=== PATIENT | male | born 1995 | race Two or more races ===

== ENCOUNTER 2020-02-29 17:13 | Outpatient (REF) | payer OTHER, SELFPAY ==
[2020-02-29 17:54] LABS: COVID-19 Test Negative (Negative)
== END 2020-02-29 17:14 | disposition home or self-care (01) ==
LOC: HO.LAB 17:13
PROVIDERS: Visit Provider Internal Medicine
DX: Z20.828 Contact with and (suspected) exposure to other viral communicable diseases (principal)
CPT/HCPCS: 87635

== ENCOUNTER 2020-05-19 15:59 | Emergency (ER) | payer OTHER, SELFPAY ==
--- NOTE | 2020-05-19 | XR_ITS ---
EXAMINATION: XR FOOT, RIGHT CLINICAL INFORMATION: Crush injury COMPARISON: None TECHNIQUE: AP, lateral, and oblique views of the right foot. FINDINGS: There is no acute visible fracture or dislocation. Joint spaces and alignment are maintained. Soft tissues are unremarkable. XR/XR foot RT min 3V IMPRESSION: No acute visible fracture or dislocation.
[2020-05-19 16:03] VITALS: BP 144/91; PULSE 114; RESP 18; TEMP 36.7; O2SAT 98; BMI 25.7
--- NOTE | 2020-05-19 16:38 | ED_ITS ---
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 This accident happened during work. Patient stated that he is up-to-date on his vaccination. Related Data Previous Rx's Medication Instructions Recorded ibuprofen 800 mg PO Q8H PRN #30 tab 05/19/20 Allergies Allergy/AdvReac Type Severity Reaction Status Date / Time No Known Allergies Allergy Unverified 01/25/20 19:31 [No Known Allergies*] Review of Systems Review of Systems: All other systems are reviewed and are negative Constitutional: Reports as per HPI and Reports no additional constitutional complaints Eyes: Reports as per HPI and Reports no additional eye complaints Reports system reviewed and no additional complaints, except as documented Cardiovascular: Reports as per HPI and Reports no additional cardiovascular complaints Respiratory: Reports as per HPI and Reports no additional respiratory complaints Gastrointestinal: Reports as per HPI and Reports no additional gastrointestinal complaints Genitourinary: Reports no additional female genitourinary complaints Musculoskeletal: Reports no additional musculoskeletal complaints Skin/Breast: Reports system reviewed and no additional complaints, except as docu Psychiatric: Reports no additional psychiatric complaints Endocrine: Reports no additional endocrine complaints Hematologic/Lymphatic: Reports no additional hematologic/lymphatic complaints Allergic/Immunologic: Reports no additional allergic/immunologic complaints Reports system reviewed and no additional complaints, except as documented and Reports Abnormal speech present [facility] Social History Social History Advance Directives: No Advance Directives Information Provided: No Physical Exam Vital Signs: Vital Signs: Last Vital Signs Temp 98.0 F 05/19/20 16:03 Pulse 114 H 05/19/20 16:03 Resp 18 05/19/20 16:03 BP 144/91 H 05/19/20 16:03 Pulse Ox 98 05/19/20 16:03 Body Mass Index 25.7 Vital signs have been reviewed as normal and appeared to be correct. Blood pressure in the high range. Heart rate tachycardic. Respiration rate normal. Temperature normal. Oxygen saturation normal. Appearance: Alert. Oriented X3. No acute distress. Head: Normal external exam. Normocephalic. Atraumatic. No Ortiz signs noted. No raccoon eyes noted Eyes: PERRLA. EOMI. Conjunctiva and sclera normal. Eyelids normal. ENT: EAC normal. TM's Normal. Pharynx normal. Uvula midline. Moist mucous membranes. No trismus noted. No drooling noted. No muffled voice noted. Neck: Normal inspection. Neck supple. FROM. No adenopathy. Thyroid Normal. No meningeal signs. No neck mass noted. CVS: Normal heart rate and rhythm. Heart sound normal. No murmurs noted. Pulses normal throughout. Respiratory: No respiratory distress. Painless inspiration. Breath sounds normal. No wheezes/rales/rhonchi noted. Chest nontender. No accessory muscle usage noted or decreased air movement noted. Abdomen: Soft and nontender. Bowel sounds normal in all 4 quadrants. No distention noted. No organomegaly noted. No visible injury noted. Back: No CVA tenderness. Full range of motion noted. Skin: Skin warm and dry. Normal skin color. Normal skin turgor. No rashes/lesions/lacerations noted. Extremities: Right foot exam: Right great toe slightly swollen, with mild ecchymosis, small subungual hematoma, dry blood, not from lateral side of nail bed of the toe. Otherwise no open fracture Neuro: Oriented X 3. No motor deficit. No sensory deficit. Reflexes normal. Course Course Course Narrative: 24-year-old male otherwise healthy during work he dropped a heavy newspaper stand on his right foot causing fracture of the right big toe. Stevenson tape the toes, postop shoe, analgesia, follow-up with ortho. Discharge Plan Discharge Clinical Impression: Fracture of toe Qualifiers: Encounter type: initial encounter Toe: great toe Fracture type: closed Phalanx: distal Fracture alignment: displaced Patient Disposition: Home, Self-Care Instructions: Toe Fracture (ED) Prescriptions: New ibuprofen 800 mg tablet 800 mg PO Q8H PRN (Reason: pain) Qty: 30 RF: 0 Referrals: Zeke Lynch MD [Physician] - 2 days Stand Alone Forms: Work/School Release
[2020-05-19] MEDS: oxyCODONE HCl Immed Release 5 MG TABLET PO (17:15)
== END 2020-05-19 18:30 | disposition home or self-care (01) ==
PROVIDERS: Emergency Provider Emergency Medicine
DX: S92.401A Displaced unspecified fracture of right great toe, initial encounter for closed fracture (principal); M79.671 Pain in right foot; Y29.XXXA Contact with blunt object, undetermined intent, initial encounter; Y93.9 Activity, unspecified; Y92.239 Unspecified place in hospital as the place of occurrence of the external cause; Y99.0 Civilian activity done for income or pay
CPT/HCPCS: 73630; 99283

== ENCOUNTER → 2020-05-21 13:26 | Outpatient (BNVA) | payer OTHER, SELFPAY | PROVIDERS: Visit Provider Physician Assistant | DX: S92.911A Unspecified fracture of right toe(s), initial encounter for closed fracture (principal) | CPT/HCPCS: 99202 ==

== ENCOUNTER 2020-06-19 08:52 | Outpatient (REF) | payer OTHER, SELFPAY ==
--- NOTE | ~2020-06-19 | XR_ITS ---
EXAMINATION: XR FOOT, RIGHT CLINICAL INFORMATION: S92.911A - Unspecified fracture of right toe(s), initial encounter for closed fracture COMPARISON: Radiographs right foot 05/19/2020. TECHNIQUE: The right foot is imaged in 3 views. FINDINGS: There is a comminuted fracture involving the distal phalangeal tuft great toe with some comminuted fracture lines extending into the distal shaft of the distal phalanx. There is no significant angulation, displacement or distraction. Fracture lines are still visible. The remainder of the bony structures are unremarkable. XR/XR foot RT 2V IMPRESSION: Comminuted fracture 1st distal phalanx, distal shaft and tuft.
== END 2020-06-19 08:53 | disposition home or self-care (01) ==
LOC: HO.HOSX 08:52
PROVIDERS: Visit Provider Physician Assistant
DX: S92.911A Unspecified fracture of right toe(s), initial encounter for closed fracture (principal)
CPT/HCPCS: 73620; 99212

== ENCOUNTER → 2020-06-19 15:31 | Outpatient (BNVA) | payer OTHER, SELFPAY | DX: S92.911A Unspecified fracture of right toe(s), initial encounter for closed fracture (principal); X58.XXXA Exposure to other specified factors, initial encounter | CPT/HCPCS: 99202 ==

== ENCOUNTER 2020-07-25 15:00 | Outpatient (REF) | payer OTHER, SELFPAY ==
[2020-07-25 15:26] LABS: COVID-19 Test Negative (Negative)
== END 2020-07-25 15:01 | disposition home or self-care (01) ==
LOC: HO.LAB 15:00
PROVIDERS: Visit Provider Internal Medicine
DX: Z20.822 Contact with and (suspected) exposure to COVID-19 (principal)
CPT/HCPCS: 36415; 87635; C9803

== ENCOUNTER 2021-09-22 19:40 | Outpatient (REF) | payer OTHER, SELFPAY ==
[2021-09-22 20:18] LABS: COVID-19 Test Negative (Negative); IDNOW Serial# 55D5AD1C
== END 2021-09-22 19:41 | disposition home or self-care (01) ==
LOC: HO.LAB 19:40
PROVIDERS: Visit Provider Internal Medicine
DX: Z20.822 Contact with and (suspected) exposure to COVID-19 (principal)
CPT/HCPCS: 87635

== ENCOUNTER → 2021-09-25 14:46 | Outpatient (BNVA) | payer SELFPAY | PROVIDERS: Visit Provider Internal Medicine | DX: Z02.79 Encounter for issue of other medical certificate (principal) ==

== ENCOUNTER → 2022-02-26 12:09 | Outpatient (RCR) | payer OTHER, SELFPAY ==
[2020-03-22 14:48] LABS: COVID-19 Test Negative (Negative); IDNOW Serial# 55D5AD1C
[2020-04-11 08:41] LABS: COVID-19 Test Negative (Negative)
[2020-04-22 17:42] LABS: COVID-19 Test Negative (Negative); IDNOW Serial# 55D5AD1C
[2020-05-01 09:05] LABS: SARS-COV-2 PCR UMBRL Not Detected
[2020-05-01 17:08] LABS: COVID-19 Test Negative (Negative); IDNOW Serial# 55D5AD1C
[2020-05-06 14:22] LABS: COVID-19 Test Negative (Negative)
[2020-05-22 09:52] LABS: SARS-COV-2 PCR UMBRL NOT DETECTED
== END | disposition home or self-care (01) ==
LOC: HO.EMPCOV 03-22 14:23
PROVIDERS: Visit Provider Internal Medicine
DX: Z20.828 Contact with and (suspected) exposure to other viral communicable diseases (principal)
CPT/HCPCS: 36415; 87635; C9803; U0003

== ENCOUNTER 2022-03-01 19:38 | Emergency (ER) | payer OTHER, SELFPAY ==
--- NOTE | ~2022-03-01 | XR_ITS ---
EXAMINATION: XR RIBS, RIGHT CLINICAL INFORMATION: Rib pain status post fall COMPARISON: None TECHNIQUE: 3 views of the right ribs were obtained. FINDINGS: Lungs are clear. No consolidation, pneumothorax, or pleural effusion. The cardiomediastinal silhouette and pulmonary vasculature are normal. No acute displaced rib identified. XR/XR ribs RT min 3V w CXR1V IMPRESSION: 1. No acute pulmonary process. 2. No acute displaced rib fracture identified.
--- NOTE | ~2022-03-01 | CT_ITS ---
EXAMINATION: CT CHEST WITHOUT CONTRAST CLINICAL INFORMATION: Right lower rib pain after fall COMPARISON: None TECHNIQUE: Multidetector volumetric CT imaging of the chest was done. Axial MIP volume rendering provided. Sagittal and coronal reformatted images were obtained. This CT examination was performed using dose optimization techniques as appropriate, variously including the following: *Automated exposure control *Adjustment of mA and/or kV according to patient size (this includes techniques or standardized protocols for targeted exams where dose is matched to indication/reason for exam; i.e. extremities or head) *Use of iterative reconstruction technique DLP: 519 mGy-cm FINDINGS: LUNGS: The lungs are clear with no evidence of inflammation or nodules. MEDIASTINUM: The mediastinum is normal. CORONARY ARTERY CALCIFICATION: None visualized on this study. PLEURA: There is no pleural effusion. No pleural mass or thickening. AXILLA: No lymphadenopathy. UPPER ABDOMEN: Hepatic steatosis. OSSEOUS STRUCTURES: No fractures. CT/CT chest wo IV con IMPRESSION: No rib fractures. No acute findings within the chest. Hepatic steatosis.
[2022-03-01 20:35] VITALS: BP 111/73; PULSE 76; RESP 18; TEMP 36.2; O2SAT 96; BMI 40.5
[2022-03-01] MEDS: Acetaminophen 325 MG TABLET 650 MG PO (20:45)
[2022-03-02 00:38] VITALS: BP 114/71; PULSE 73; RESP 18; TEMP 36.3; O2SAT 97
--- NOTE | 2022-03-02 04:46 | ED.FALL ---
HPI - Fall General Chief Complaint: Fall Stated Complaint: Fall/Work injury Time Seen by Provider: 03/02/22 04:39 Source: patient Mode of arrival: ambulatory History of Present Illness HPI Narrative: 26-year-old male who presents after having fallen of the back of his flat bed truck which caused him to strike his right chest wall against the edge. Patient states that he felt short of breath shortly thereafter but has somewhat improved and now he is his having ?a lot of pain at the right chest. Related Data Previous Rx's Medication Instructions Recorded ibuprofen 800 mg tablet 800 mg PO Q8H PRN pain #30 tabs 05/19/20 Allergies Allergy/AdvReac Type Severity Reaction Status Date / Time No Known Allergies Allergy Verified 03/01/22 20:34 [No Known Allergies*] Review of Systems Review of Systems: Pertinent positives and negatives as stated in HPI 10 point review of systems is otherwise negative. PMFSH Past Medical History Source: nursing notes reviewed Social History Social History Patient Tobacco Use Status: Never used Tobacco Use of substances other than those prescribed or required for medical reasons: No Advance Directives: No Advance Directives Information Provided: No Current occupational status: employed Current occupation: left handed Physical Exam Vital Signs: Vital Signs: Last Vital Signs Temp 97.5 F 03/02/22 04:50 Pulse 63 03/02/22 04:50 Resp 18 03/02/22 04:50 BP 142/79 H 03/02/22 04:50 Pulse Ox 99 03/02/22 04:50 O2 Del Method 03/02/22 04:50 BMI result Body Mass Index 40.5 VITAL SIGNS: Reviewed. GENERAL: Well developed, well nourished, in no acute distress. HEAD: Normocephalic/atraumatic EYES: PERRLA, EOMI EARS: Ext canals without abnormality OROPHARYNX: no oral lesions noted, posterior pharynx clear LUNGS: Normal breath sounds. No adventitious sounds or accessory muscle use. SpO2<97>; CHEST WALL: Patient is expressing significant pain on mild palpation along the right anterolateral ribs but there is no noted deformity or crepitus. CARDIOVASCULAR: Regular rate and rhythm without noted murmurs ABDOMEN: Soft, non-tender, non-distended with bowel sounds. NEUROLOGIC: Alert and oriented x 4. Strength and sensation to light touch were grossly intact x 4. Course Course Course Narrative: 26-year-old male with history and clinical presentation consistent with possible rib fracture, patient provided with combination analgesics as well as lidocaine patch and awaiting CT of the chest. Review of CT scan negative for acute rib fractures. Patient informed and discharged home Discharge Plan Discharge Clinical Impression: Contusion of rib Patient Disposition: Home, Self-Care Instructions: Rib Contusion (ED) Additional Instructions: 1. [id number] Tylenol/ibuprofen as needed for pain control. 2. Follow-up with your primary care provider. Return to the ER for worsening symptoms. Prescriptions: No Action ibuprofen 800 mg tablet 800 mg PO Q8H PRN (Reason: pain) Qty: 30 0RF
[2022-03-02 04:50] VITALS: BP 142/79; PULSE 63; RESP 18; TEMP 36.4; O2SAT 99
--- NOTE | 2022-03-02 04:54 | PC.NURSE ---
pt taken to CT Scan
--- OUTSIDE RECORDS SUMMARY | 2022-03-02 05:23 | XMS_ITS | Continuity of Care Document ---
:1995 Author Organization [facility] Address [address] [place] [address]- Care Team Providers Name Role Phone Not on Staff, PCP Primary Care Physician Unavailable Encounter [facility] Date(s): 07/03/19 - 07/10/19 [facility] [address] [place] [address]- [facility] Encounter Diagnosis Acute bacterial sinusitis (Discharge Diagnosis) - 07/03/19 Attending Physician: [place] CAIN, Christopher Rayo Allergies, Adverse Reactions, Alerts Substance Reaction Severity Status NKA Active Medications amoxicillin 250 mg/5 ml oral powder for reconstitution 5 mL = 250 mg, By Mouth, 3 times a day, # 105 mL, 0 Refills, REC Powder Start Date: 08/12/11 Stop Date: 08/19/11 Status: OrderedConcerta 54 mg oral tablet, extended release 1 tablet = 54 mg, By Mouth, Daily in AM, 0 Refills, Maintenance, ER Tablet Start Date: 08/10/11 Status: Orderedibuprofen 800 mg oral tablet 800 mg, 1, tablet, By Mouth, 3 times a day, PRN, with food or milk, # 30 tablet, Refills 0, Tot. Refills 0, Acute 07/15/19 17:48:00 EST, for pain, 07/03/19 17:48:00 EST, Route to Pharmacy Electronically, [email or web address] #[id number], 188, cm, 07/03/19... Start Date: 07/03/19 Stop Date: 07/15/19 Status: OrderedOcean 0.65% nasal spray 2 sprays, Nares, Both, 4 times a day, # 1 each, 0 Refills, Maintenance, 07/03/19 17:47:00 EST, [facility] #[id number], 2 sprays Nares, Both 4 times a day, 188, cm, 07/03/19 17:26:00 EST, Height, 114.6, kg, 07/03/19 17:26:00 EST, Dry Weight Start Date: 07/03/19 Status: Ordered Problem List Condition Effective Dates Status Health Status Informant ADHD - Attention deficit disorder with Active hyperactivity(Confirmed) Diagnosis Diagnosis Type Effective Dates Health Status Clinical In [facility] Service Acute bacterial Discharge 07/03/19 sinusitis Diagnosis Vital Signs Most recent to oldest [Reference Range]: 1 Height 188.00 cm (07/03/19 5:26 PM) Weight 114.6 kg (07/03/19 5:26 PM) Oxygen Saturation [94-100 %] 100 % (07/03/19 5:26 PM) Pulse Rate [55-90 bpm] 86 bpm (07/03/19 5:26 PM) Body Mass Index [18.5-24.99] 32.42 *>HHI* (07/03/19 5:26 PM) Blood Pressure [90-138/55-84 mm Hg] 143/80 mm Hg *H* (07/03/19 5:26 PM) Respiratory Rate [16-30 br/min] 17 br/min (07/03/19 5:26 PM) Temperature [96.8-100.4 DegF] 99.1 DegF (07/03/19 5:26 PM) Mode of Delivery (Oxygen) Room air (07/03/19 5:26 PM) Blood pressure sites Arm, right (07/03/19 5:26 PM) Temperature Route Oral (07/03/19 5:26 PM) Dry Weight 114.6 kg (07/03/19 5:26 PM) Weight Obtained Via Standing scale (07/03/19 5:26 PM) Dry Weight Obtained Via Standing scale (07/03/19 5:26 PM)
--- OUTSIDE RECORDS SUMMARY | 2022-03-02 05:23 | XMS_ITS | Continuity of Care Document ---
:1995 Author Organization [facility] Address Unavailable , Care Team Providers Name Role Phone Not on Staff, PCP Primary Care Physician Unavailable Encounter [facility] Date(s): 05/14/21 - 06/13/21 [facility] Allergies, Adverse Reactions, Alerts No Known Allergies Medications amoxicillin 250 mg/5 ml oral powder for reconstitution 5 mL = 250 mg, By Mouth, 3 times a day, # 105 mL, 0 Refills, REC Powder Start Date: 08/12/11 Stop Date: 08/19/11 Status: OrderedConcerta 54 mg oral tablet, extended release 1 tablet = 54 mg, By Mouth, Daily in AM, 0 Refills, Maintenance, ER Tablet Start Date: 08/10/11 Status: OrderedOcean 0.65% nasal spray 2 sprays, Nares, Both, 4 times a day, # 1 each, 0 Refills, Maintenance, 07/03/19 17:47:00 EST, [facility] #[id number], 2 sprays Nares, Both 4 times a day, 188, cm, 07/03/19 17:26:00 EST, Height, 114.6, kg, 07/03/19 17:26:00 EST, Dry Weight Start Date: 07/03/19 Status: Ordered Problem List Condition Effective Dates Status Health Status Informant ADHD - Attention deficit disorder with Active hyperactivity(Confirmed)
--- OUTSIDE RECORDS SUMMARY | 2022-03-02 05:23 | XMS_ITS | Continuity of Care Document ---
:1995 Author Organization [facility] Address Unavailable , Care Team Providers Name Role Phone Not on Staff, PCP Primary Care Physician Unavailable Encounter [facility] Date(s): 09/26/21 - 10/26/21 [facility] Attending Physician: Eduarda Lara Admitting Physician: Eduarda Lara Referring Physician: Eduarda Lara Allergies, Adverse Reactions, Alerts No Known Allergies [...] each, 0 Refills, Maintenance, 07/03/19 17:47:00 EST, [facility] #[id number], 2 sprays Nares, Both 4 times a day, 188, cm, 07/03/19 17:26:00 EST, Height, 114.6, kg, 07/03/19 17:26:00 EST, Dry Weight Start Date: 07/03/19 Status: Ordered Problem List Condition Effective Dates Status Health Status Informant ADHD - Attention deficit disorder with Active hyperactivity(Confirmed)
--- OUTSIDE RECORDS SUMMARY | 2022-03-02 05:23 | XMS_ITS | Continuity of Care Document ---
:1995 Author Organization [facility] Address [address] [place] [address]- Care Team Providers Name Role Phone Not on Staff, PCP Primary Care Physician Unavailable Encounter [facility] [place] Date(s): 07/03/19 - 07/13/19 [facility] [address] [place] [address]- [facility] Attending Physician: Eduarda Lara Admitting Physician: AdmtrEduarda Referring Physician: Admtr, Ar8 Allergies, Adverse Reactions, Alerts Substance Reaction Severity [...] 07/03/19 17:48:00 EST, Route to Pharmacy Electronically, [facility] #[id number], 188, cm, 07/03/19... Start Date: 07/03/19 Stop Date: 07/15/19 Status: OrderedOcean 0.65% nasal spray 2 sprays, Nares, Both, 4 times a day, # 1 each, 0 Refills, Maintenance, 07/03/19 17:47:00 EST, [facility] #[id number], 2 sprays Nares, Both 4 times a day, 188, cm, 07/03/19 17:26:00 EST, Height, 114.6, kg, 07/03/19 17:26:00 EST, Dry Weight Start Date: 07/03/19 Status: Ordered Problem List Condition Effective Dates Status Health Status Informant ADHD - Attention deficit disorder with Active hyperactivity(Confirmed)
--- OUTSIDE RECORDS SUMMARY | 2022-03-02 05:23 | XMS_ITS | Continuity of Care Document ---
:1995 Author Organization [facility] Address [address] [place] [id number]- Care Team Providers Name Role Phone Not on Staff, PCP Primary Care Physician Unavailable Encounter [facility] Date(s): 05/15/21 - 07/11/[address] [id number] Attending Physician: Lillian Brewer MD Allergies, Adverse Reactions, Alerts No Known Allergies [...] each, 0 Refills, Maintenance, 07/03/19 17:47:00 EST, [facility] #[id number], 2 sprays Nares, Both 4 times a day, 188, cm, 07/03/19 17:26:00 EST, Height, 114.6, kg, 07/03/19 17:26:00 EST, Dry Weight Start Date: 07/03/19 Status: Ordered Problem List Condition Effective Dates Status Health Status Informant ADHD - Attention deficit disorder with Active hyperactivity(Confirmed)
[2022-03-02] MEDS: Acetaminophen 325 MG TABLET 975 MG PO (05:47)
[2022-03-02] MEDS: Lidocaine 4 % Patch ADH..PATCH 1 PATCH TRANSDERMA (05:48)
[2022-03-02] MEDS: Ketorolac Tromethamine 15 MG/ML VIAL IM (05:48)
--- NOTE | 2022-03-02 06:04 | PC.NURSE ---
pt medicate per Jul. Reviewed discharge instructions with pt. pt verbalized understanding.
== END 2022-03-02 06:05 | disposition home or self-care (01) ==
PROVIDERS: Emergency Provider Student in an Organized Health Care Education/Training Program
DX: S20.211A Contusion of right front wall of thorax, initial encounter (principal); W17.89XA Other fall from one level to another, initial encounter; Y93.89 Activity, other specified; Y92.410 Unspecified street and highway as the place of occurrence of the external cause; Y99.0 Civilian activity done for income or pay
CPT/HCPCS: 71101; 71250; 96372; 99284; J1885

== ENCOUNTER 2023-05-19 15:44 | Emergency (ER) | payer OTHER, SELFPAY ==
--- NOTE | 2023-05-19 16:01 | ED.LOWEXIN ---
HPI - Extremity Injury (Lower) General Chief Complaint: Extremity Injury, Lower Stated Complaint: Stepped on a samantha nail Time Seen by Provider: 05/19/23 16:04 Source: patient, RN notes reviewed and old records reviewed Mode of arrival: ambulatory History of Present Illness HPI Narrative: 27-year-old male with no significant past medical history presenting to the ED complaining of puncture wound to left foot, plantar aspect s/p accidentally stepping on a samantha nail 1 hour [employer]. Reports stepped on nail while walking in street of [place] while wearing Crocs. + bhanu blood. Wash initially. Denies injury to the area, fever/chills. Tetanus unknown Related Data Previous Rx's Medication Instructions Recorded ibuprofen 800 mg tablet 800 mg PO Q8H PRN pain #30 tabs 05/19/20 cephalexin 500 mg capsule 500 mg PO QID 7 days #28 caps 05/19/23 ciprofloxacin HCl 500 mg tablet 500 mg PO BID 7 days #14 tabs 05/19/23 Allergies Allergy/AdvReac Type Severity Reaction Status Date / Time No Known Allergies Allergy Verified 03/01/22 20:34 [No Known Allergies*] Review of Systems Review of Systems: Constitutional: No Fever, No Chills Cardiovascular: No Chest Pain, No SOB Respiratory: No Cough, No Sputum Gastrointestinal: No Nausea, No Abdominal pain Musculoskeletal: No joint pain, No Myalgias, No Joint Swelling Skin: +Skin Lesions, No rash Neuro: No Weakness, No Numbness, No Paresthesias Yes all other systems are reviewed and are negative Constitutional: Constitutional: Reports as per [facility] Past Medical History Attestation statement: The following information was validated with the patient. Source: old records reviewed Onset Date is defined in the Problem List Problems that require an onset date and time if occurred within 24 hrs of arrival to the ED Aortic Dissection and Rupture; Neurologic impairment; Cardiopulmonary Arrest; Endotracheal Intubation; Insertion or Replacement of Mechanical Circulatory Assist Device Social History Social History Patient Tobacco Use Status: Never used Tobacco Current occupational status: employed Current occupation: left handed Physical Exam Vital Signs: Vital Signs: Last Vital Signs Temp 98.0 F 05/19/23 16:02 Pulse 72 05/19/23 16:02 Resp 18 05/19/23 16:02 BP 107/62 05/19/23 16:02 Pulse Ox 95 05/19/23 16:02 O2 Del Method Room Air 05/19/23 16:02 BMI result Body Mass Index 43.0 Const: General: cooperative, healthy appearing and no acute distress Orientation/consciousness: patient oriented x3 Limitations: no limitations HEENT: Head: Yes normal to inspection and Yes atraumatic Ears: hearing grossly normal bilaterally General nose exam: Normal external nose present Face and sinus: Yes normal facial exam Eyes: General: appearance normal, both eyes and all related structures EOM: EOMs intact bilaterally Neck: Neck: Yes normal visual inspection and Yes no meningeal signs Resp: Effort & Inspection: normal respiratory effort and no respiratory distress Cardio: Rate: regular rate Skin: Other: + superficial puncture wound noted to left foot plantar aspect. No appreciable open wounds or active drainage. No surrounding erythema. No fluctuance or induration. Neurovascularly intact. Rashes: no rashes Neuro: General: patient oriented x3, tone normal and no meningeal signs Cranial nerves: Yes CN's II-XII intact bilaterally Gait exam (Neuro): Antalgic gait present Extrem: General: Yes normal to inspection Medical Decision Making Medical Decision Making MDM Narrative: 27-year-old male with no significant past medical history presenting to the ED complaining of puncture wound to left foot, plantar aspect s/p accidentally stepping on a samantha nail 1 hour [employer]. On exam vital signs stable, NAD, nontoxic appearing, physical exam as noted above. Will update tetanus. Discussed risk of infection. Low suspicion for osteomyelitis, abscess formation or retained foreign body Plan: P.o. antibiotics, tetanus, PCP follow-up Please refer to course for remaining clinical decision making, interpretation of labs/imaging results, and discussions with consultants and/or family members. Results discussed with patient including worrisome signs and symptoms and strict return precautions, and when to return to the emergency department. They verbalized understanding and feel safe for discharge at this time. Differential Diagnosis Differential Diagnoses: The differential diagnosis associated with the presentation includes As above External Record Review External record reviewed: Inpatient record, Office record, Outpatient record, Prior outpatient labs, Prior outpatient radiology, Primary care record and Outside ED record Tests considered The following testing was considered but not selected: As above Prescription Management I considered prescription management with: Pain Medication and Antibiotic Discharge Plan Discharge Clinical Impression: Puncture wound of plantar aspect of left foot Patient Disposition: Home, Self-Care Instructions: Puncture Wound in the Foot (ED) Additional Instructions: Keflex and Cipro are antibiotics please take as prescribed Your tetanus was updated If area begins look infected, is red or there is drainage return to the ED Prescriptions: New ciprofloxacin HCl 500 mg tablet 500 mg PO BID 7 Days Qty: 14 0RF cephalexin 500 mg capsule 500 mg PO QID 7 Days Qty: 28 0RF No Action ibuprofen 800 mg tablet 800 mg PO Q8H PRN (Reason: pain) Qty: 30 0RF Referrals: Physician,Unknown J [Primary Care Provider] - 5 days
[2023-05-19 16:02] VITALS: BP 107/62; PULSE 72; RESP 18; TEMP 36.7; O2SAT 95; BMI 43.0
[2023-05-19] MEDS: Diphth,Pertus(ACell),Tet Adult 0.5 ML SYRINGE IM (16:10)
== END 2023-05-19 16:23 | disposition home or self-care (01) ==
PROVIDERS: Emergency Provider Student in an Organized Health Care Education/Training Program
DX: S91.332A Puncture wound without foreign body, left foot, initial encounter (principal); W45.0XXA Nail entering through skin, initial encounter; Y93.01 Activity, walking, marching and hiking; Y92.480 Sidewalk as the place of occurrence of the external cause; Y99.9 Unspecified external cause status; Z23 Encounter for immunization
CPT/HCPCS: 90471; 90715; 99282; 99284

== ENCOUNTER → 2023-09-24 09:36 | Outpatient (BNVA) | payer SELFPAY | PROVIDERS: Visit Provider Physician Assistant | DX: Z02.79 Encounter for issue of other medical certificate (principal) ==

== ENCOUNTER 2024-02-05 21:50 | Emergency (ER) | payer OTHER, SELFPAY ==
[2024-02-05 22:02] VITALS: BP 122/71; PULSE 92; RESP 16; TEMP 36.6; O2SAT 98; BMI 42.4
--- NOTE | 2024-02-06 01:05 | ED_ITS ---
HPI - Dental/Oral General Chief complaint: Dental/Oral Stated complaint: rt side lower tooth pain/hole in it? Time Seen by Provider: 02/06/24 00:48 Source: patient Mode of arrival: ambulatory Limitations: no limitations History of Present Illness ED Provider: janay REED Narrative: Patient is complaining of pain in right lower 2nd molar for last 1 week getting worse increases on drinking cold water with shooting pain does have old cavity filling in place no fever no gum swelling Related Data Previous Rx's ?Medication ?Instructions ?Recorded ibuprofen 800 mg tablet 800 mg PO Q8H PRN pain #30 tabs 05/19/20 acetaminophen 500 mg tablet 500 mg PO Q6H PRN fever or pain 05/19/23 (Tylenol Extra Strength) #14 tabs cephalexin 500 mg capsule 500 mg PO QID 7 days #28 caps 05/19/23 ciprofloxacin HCl 500 mg tablet 500 mg PO BID 7 days #14 tabs 05/19/23 ibuprofen 800 mg tablet 800 mg PO Q8H PRN pain #14 tabs 05/19/23 amoxicillin 875 mg-potassium 1 tab PO BID #20 tabs 02/06/24 clavulanate 125 mg tablet ibuprofen 600 mg tablet 600 mg PO Q6H PRN fever or pain 02/06/24 #30 tabs oxycodone 5 mg tablet 5 mg PO Q6H PRN pain #20 tabs 02/06/24 Allergies Allergy/AdvReac Type Severity Reaction Status Date / Time No Known Allergies Allergy Verified 02/05/24 22:04 [No Known Allergies*] Review of Systems 2 Review of Systems: Yes all other systems are reviewed and are negative PMFSH Social History Social History Patient Tobacco Use Status: Never used Tobacco Advance Directives: No Advance Directives Information Provided: No Current occupational status: employed Current occupation: left handed Physical Exam 2 Vital Signs: Vital Signs: Last Vital Signs Temp 98.3 F 02/06/24 01:08 Pulse 74 02/06/24 01:08 Resp 16 02/06/24 01:08 BP 114/76 02/06/24 01:08 Pulse Ox 98 02/06/24 01:08 O2 Del Method Room Air 02/06/24 01:08 BMI result Body Mass Index 42.4 HEENT: Ears: hearing grossly normal bilaterally, external ears normal and TM's normal bilaterally Teeth image: 1. Old filling in place tenderness to touch no open cavity seen no significant gum swelling no abscess Medical Decision Making Medical Decision Making [facility] Narrative: Patient with dental pulpitis right lower 2nd molar tooth number 31 will prescribe Augmentin and oxycodone for pain Discharge Plan Discharge Clinical Impression: Dental caries Patient Disposition: Home, Self-Care Instructions: Toothache (ED) Additional Instructions: Take antibiotics and pain medication as prescribed Follow up with your dentist Prescriptions: New amoxicillin-pot clavulanate 875-125 mg tablet 1 tab PO BID Qty: 20 0RF oxycodone 5 mg tablet 5 mg PO Q6H PRN (Reason: pain) Qty: 20 0RF Rx Instructions: Partial Fill upon patient request. ibuprofen 600 mg tablet 600 mg PO Q6H PRN (Reason: fever or pain) Qty: 30 0RF No Action ibuprofen 800 mg tablet 800 mg PO Q8H PRN (Reason: pain) Qty: 30 0RF ciprofloxacin HCl 500 mg tablet 500 mg PO BID 7 Days Qty: 14 0RF cephalexin 500 mg capsule 500 mg PO QID 7 Days Qty: 28 0RF ibuprofen 800 mg tablet 800 mg PO Q8H PRN (Reason: pain) Qty: 14 0RF acetaminophen [Tylenol Extra Strength] 500 mg tablet 500 mg PO Q6H PRN (Reason: fever or pain) Qty: 14 0RF Print Language: Mohawk
[2024-02-06 01:08] VITALS: BP 114/76; PULSE 74; RESP 16; TEMP 36.8; O2SAT 98
[2024-02-06] MEDS: Amoxicillin/Potassium Clav 875 MG TABLET PO (01:15)
[2024-02-06] MEDS: oxyCODONE HCl Immed Release 5 MG TABLET 10 MG PO (01:19)
[2024-02-06 01:22] VITALS: BP 114/76; PULSE 74; RESP 16; TEMP 36.8; O2SAT 98
== END 2024-02-06 01:22 | disposition home or self-care (01) ==
PROVIDERS: Emergency Provider Internal Medicine; PCP Internal Medicine
DX: K02.9 Dental caries, unspecified (principal)
CPT/HCPCS: 99283

== ENCOUNTER 2024-09-05 11:22 | Emergency (ER) | payer OTHER, SELFPAY ==
[2024-09-05] VITALS (8 sets, daily range): BP systolic 94–130; BP diastolic 52–79; PULSE 90–116; RESP 14–18; TEMP 36.9–38.8; O2SAT 97–99; BMI 42.6
--- NOTE | ~2024-09-05 | CT_ITS ---
EXAMINATION: CT ABDOMEN AND PELVIS WITH CONTRAST CLINICAL INFORMATION: Abdominal pain, diarrhea. COMPARISON: None available. TECHNIQUE: Multidetector volumetric images were obtained from the superior aspect of the liver through the pubic symphysis following administration 100 mL of Omnipaque 350 intravenous contrast. Sagittal and coronal reformatted images were obtained on the technologist's workstation. Oral contrast: No This CT examination was performed using dose optimization techniques as appropriate, variously including the following: *Automated exposure control *Adjustment of mA and/or kV according to patient size (this includes techniques or standardized protocols for targeted exams where dose is matched to indication/reason for exam; i.e. extremities or head) *Use of iterative reconstruction technique FINDINGS: LUNG BASES: The visualized lung bases are unremarkable. LIVER, GALLBLADDER, AND BILIARY TREE: Liver demonstrates diffuse fatty infiltration with normal contour. No suspicious hepatic lesions seen. No intrahepatic or extrahepatic biliary dilatation. The gallbladder is unremarkable with no evidence of radiopaque gallstones, gallbladder wall thickening, or obvious pericholecystic inflammatory changes. PANCREAS: Unremarkable. SPLEEN: Unremarkable. ADRENAL GLANDS: Unremarkable. KIDNEYS AND URETERS: The kidneys are normal in size, shape, and attenuation. No hydronephrosis, hydroureter, or calculi seen. No perinephric stranding. BLADDER: Unremarkable. GASTROINTESTINAL TRACT: Best appreciated on the coronal reformats is mucosal enhancement and mild fold thickening of the most terminal ileum leading into the ileocecal valve, findings consistent with terminal ileitis. The remainder of the small bowel, stomach, duodenum, colon, and rectum appear normal. A normal appendix is visualized although there is an appendicolith within the proximal aspect. No inflammatory changes to suggest appendicitis. ABDOMINAL WALL: There is a tiny fat-containing right inguinal hernia. There is a tiny fat-containing periumbilical hernia. LYMPH NODES: Normal. VASCULAR: Unremarkable. PELVIC VISCERA: The prostate and seminal vesicles are unremarkable. OSSEOUS STRUCTURES: No suspicious lytic or blastic bone lesion. No acute bony abnormalities. CT/CT abdomen pelvis w IV con IMPRESSION: 1. Mild wall thickening and mucosal enhancement of the most terminal ileum, findings consistent with mild terminal ileitis. Inflammatory bowel disease is a consideration versus infectious etiologies. 2. Diffuse fatty infiltration of the liver. Electronically signed by: Chago Basurto MD 09/05/2024 04:27 PM EDT
--- NOTE | 2024-09-05 11:26 | ED_ITS ---
HPI - General Adult General Chief complaint: Abdominal Pain Stated complaint: Vomiting Time Seen by Provider: 09/05/24 14:34 Source: patient and RN notes reviewed Mode of arrival: ambulatory Limitations: no limitations History of Present Illness ED Provider: Anita Chase PA-C HPI narrative: This is a 29-year-old male, with no known medical problems, who presents emergency department with complaints of abdominal pain and diarrhea which started at 3:00 a.m. this morning. Patient reports that he awoke abruptly and had multiple episodes of green/yellow diarrhea. He was able to fall back asleep however he states that he has had more than 10 episodes of diarrhea. He does report subjective fevers and chills. Denies any sick contacts. No recent travel or antibiotic use. Denies any history of abdominal surgeries in the past. No alcohol, drug use. No other complaints or concerns at this time. MD complaint: Diarrhea, abdominal pain Onset (ago): day(s) Location: abdomen Radiation: non-radiation Severity: moderate Quality: aching Pain Consistency: constant Relieving factors: none Exacerbating factors: none Associated symptoms: denies other symptoms Treatments prior to arrival: none Related Data Previous Rx's ?Medication ?Instructions ?Recorded ibuprofen 800 mg tablet 800 mg PO Q8H PRN pain #30 tabs 05/19/20 acetaminophen 500 mg tablet 500 mg PO Q6H PRN fever or pain 05/19/23 (Tylenol Extra Strength) #14 tabs cephalexin 500 mg capsule 500 mg PO QID 7 days #28 caps 05/19/23 ciprofloxacin HCl 500 mg tablet 500 mg PO BID 7 days #14 tabs 05/19/23 ibuprofen 800 mg tablet 800 mg PO Q8H PRN pain #14 tabs 05/19/23 amoxicillin 875 mg-potassium 1 tab PO BID #20 tabs 02/06/24 clavulanate 125 mg tablet ibuprofen 600 mg tablet 600 mg PO Q6H PRN fever or pain 02/06/24 #30 tabs oxycodone 5 mg tablet 5 mg PO Q6H PRN pain #20 tabs 02/06/24 acetaminophen 500 mg tablet 1,000 mg (2 x 500 mg) PO Q8H PRN 09/05/24 (Tylenol Extra Strength) fever or pain #30 tabs Allergies Allergy/AdvReac Type Severity Reaction Status Date / Time No Known Allergies Allergy Verified 09/05/24 11:28 [No Known Allergies*] Review of Systems 2 Review of Systems: Constitutional: No Weight loss, +Fever, +Chills, No Night Sweats, No Fatigue, No Malaise ENT/Mouth: No Hearing loss, No Ear Pain, No Nasal Congestion, No Sinus Pain, No Hoarseness, No sore throat, No Rhinorrhea, No Swallowing Difficulty Eyes: No Eye Pain, No Swelling, No Redness, No Foreign Body, No Discharge, No Vision Changes Cardiovascular: No Chest Pain, No SOB, No Dyspnea on Exertion, No Orthopnea, No Edema, No Palpitations Respiratory: No Cough, No Sputum, No Wheezing, No Smoke Exposure, No Dyspnea Gastrointestinal: + Nausea, No Vomiting, + Diarrhea, No Constipation,+ Abdominal pain, No Hematochezia, No Melena Genitourinary: No irregular bleeding, No Dysuria, No Urinary Frequency, No Hematuria, No Urinary Incontinence/retention, No Urgency, No Flank Pain, No Urinary Flow Changes, No Hesitancy Musculoskeletal: No joint pain, No Myalgias, No Joint Swelling Skin: No Skin Lesions, No rash Neuro: No Weakness, No Numbness, No Paresthesias, No Loss of Consciousness, No Dizziness, No Headache Psych: No Anxiety/Panic, No Depression, No SI/HI/AH/VH, No Social Issues, Heme/Lymph: No Bruising, No Bleeding,No Lymphadenopathy Endocrine: No Polyuria, No Polydipsia, No Temperature Intolerance Yes all other systems are reviewed and are negative Constitutional: Constitutional: Reports as per [facility] Past Medical History Attestation statement: The following information was validated with the patient. Social History Social History Patient Tobacco Use Status: Never used Tobacco Smoked in Last 30 Days: No Use of substances other than those prescribed or required for medical reasons: No Advance Directives: No Advance Directives Information Provided: Yes Do you have a plan to hurt others: No Plan Current occupational status: employed Current occupation: left handed Physical Exam ED Vital Signs: Vital Signs - 24 hr 09/05/24 11:26 09/05/24 14:32 09/05/24 14:54 Temperature 98.4 F 101.9 F H Pulse Rate 107 H 116 H Respiratory Rate 14 17 Blood Pressure 130/79 96/63 Pulse Oximetry 99 97 Oxygen Delivery Method Room Air Room Air 09/05/24 15:55 09/05/24 16:24 09/05/24 16:59 Temperature 98.4 F 98.6 F Pulse Rate 110 H 112 H 96 Respiratory Rate 18 18 Blood Pressure 107/52 L 94/52 L 96/55 L Pulse Oximetry 97 97 Oxygen Delivery Method Room Air Room Air 09/05/24 18:47 Temperature 98.6 F Pulse Rate 90 Respiratory Rate 18 Blood Pressure 124/76 Pulse Oximetry 97 Oxygen Delivery Method Room Air BMI result Body Mass Index 42.6 Const General: cooperative, comfortable and no acute distress Orientation/consciousness: patient oriented x3 Limitations: no limitations HENMT Head: Yes normal to inspection, Yes normocephalic and Yes atraumatic Ears: hearing grossly normal bilaterally General nose exam: Normal external nose present Face and sinus: Yes normal facial exam Mouth: Normal oral and palatal mucosa present, oropharynx normal and moist mucous membranes Throat: Yes posterior oropharynx normal Eyes General: appearance normal, both eyes and all related structures Eyelids: Yes eyelids normal Conjunctivae: conjunctivae normal Sclerae: sclerae normal Pupils: Equal, round and reactive pupils present EOM: EOMs intact bilaterally Neck Neck: Yes normal visual inspection, Yes full ROM and Yes no lymphadenopathy Lymphatic: no lymphadenopathy noted Chest Chest palpation & inspection: normal inspection of the chest Resp Effort & Inspection: normal respiratory effort and able to speak in complete sentences Auscultation: clear to auscultation bilaterally, no crackles, no rales, no rhonchi and no wheezes Cardio Rate: regular rate Rhythm: regular rhythm Heart sounds: S1 normal heart sound present and S2 normal heart sound present GI Other: Abdomen is soft, with diffuse tenderness throughout, no rebound or guarding. Hyperactive bowel sounds present in all 4 quadrants. Inspection: Yes normal to inspection Skin General skin exam: no rashes or lesions noted Trauma: no lacerations or abrasions Wounds: no wounds Neuro General: patient oriented x3 and moves all extremities Cranial nerves: Yes Equal, round and reactive pupils present Extrem General: Yes normal to inspection Right upper extremity: normal to inspection Left upper extremity: normal to inspection Right lower extremity: normal to inspection Left lower extremity: normal to inspection Course Course Course Narrative: RME, this is a rapid medical exam performed by Rashid Lee please refer to primary provider for complete H&P- 29-year-old male presents for evaluation upper abdominal pain with nausea that started this morning. He also has associated diarrhea. Denies recent antibiotic use or travel. Plan for labs, urinalysis Reevaluation(s) Reevaluation #1: Patient re-evaluated, symptoms have improved. He has not been able to produce a urine sample as of yet. CT abdomen and pelvis revealing mild wall thickening and mucosal enhancement of the most terminal ileum, consistent with mild terminal ileitis, inflammatory bowel disease is a consideration versus infectious etiologies. He also has diffuse fatty infiltration of the liver. Time: 16:53 Reevaluation #2: Repeat vitals reveal patient is no longer tachycardic and he was no longer febrile. Spoke to manager forensic, Dr. Sharpe, who reports that this is likely bacterial with a fever, white blood cell count in changes on the CAT scan. Could be stamina or E coli therefore OB best to avoid antibiotics unless he looks toxic into avoid increased risk of becoming a chronic carrier abdominal or developing hemolytic uremic syndrome from the E coli. Recommending stool sample for GI panel and C diff. recommending supportive care with lots of liquids and very bland diet as tolerated. If patient looks stable after fluid resuscitation, he can be discharged. I re-evaluated patient, he is well- appearing appears to be under no acute distress. Urine sample was collected in his pending at this time. Will p.o. challenge, and continue to monitor. We will also order 1 more L lactated Ringer's urine does appear to be still they high concentration does not appear to be infected. We will continue to closely monitor pending PO challenge, and possible stool sample collection. Time: 17:49 Reevaluation #3: Able to tolerate p.o.. Blood pressure improved after lactated Ringer's. He is nontoxic appearing, eating and drinking. I discussed strict return precautions. And advised bland diet. Stressed the importance of getting plenty of rest and drinking plenty of fluids. He understands and agrees with this plan. He was unable to provide a stool sample, advised to call his primary care physician for follow-up this week. Patient stable for discharge. Time: 18:58 Medications Administered Generic Name Dose Route Start Last Admin Trade Name Freq PRN Reason Stop Dose Admin Lactated Ringer's 1,000 mls @ 999 mls/hr 09/05/24 18:09 09/05/24 18:12 Lr IV 09/05/24 19:09 999 mls/hr .Q1H1M ONE Administration Discontinued Medications Generic Name Dose Route Start Last Admin Trade Name Berna PRN Reason Stop Dose Admin Ceftriaxone Sodium 1 gm 09/05/24 14:47 09/05/24 15:05 Ceftriaxone Sodium 1 Gm Vial IVPUSH 09/05/24 14:48 1 gm ONCE ONE Administration Sodium Chloride 2,466 mls @ 2,466 mls/hr 09/05/24 14:47 09/05/24 16:09 Ns IV 09/05/24 15:46 Infused .Q1H STA Infusion Metronidazole 500 mg in 100 mls @ 100 mls/hr 09/05/24 14:47 09/05/24 16:38 Flagyl IV 09/05/24 15:46 Infused ONCE ONE Infusion Acetaminophen 1,000 mg in 100 mls @ 400 mls/hr 09/05/24 14:47 09/05/24 15:25 Ofirmev IV 09/05/24 15:01 Infused ONCE ONE Infusion Iohexol 100 ml 09/05/24 15:46 09/05/24 15:47 Iohexol 350 Mg/Ml 100 Ml Infus..Btl IV 09/05/24 15:47 100 ml ONCE ONE Administration Medical Decision Making Medical Decision Making MDM Narrative: This is a 29-year-old male, with no known medical problems, who presents emergency department with concerns for abdominal pain, fevers, chills, and diarrhea. No bloody or black stool. Patient initially checked in at 11:26AM, slightly tachycardic at 1:07 a.m., all other vital signs within normal limits. Patient was brought back to a room, and patient noted to be febrile at 101.9 and he was tachycardic at 116. At this time, patient meeting SIRS criteria therefore sepsis alert was initiated. Blood cultures, lactic, IV fluids, and IV antibiotics. Labs were obtained prior to my assessment, he does have a white blood cell count of 14.1, with left shift, chemistry with no significant electrolyte derangement. Does have slight elevation in ALT, T bili and AST within normal limits. He tested negative for COVID, flu, and RSV. CT abdomen and pelvis will also be ordered to rule out any intra-abdominal process. Differential Diagnosis Differential Diagnoses: The differential diagnosis associated with the presentation includes Diverticulosis, diverticulitis, gastroenteritis, appendicitis Admission/Observation Consideration of admission/observation: Escalation of care including admission/observation considered Escalation of care including admission/observation considered however given workup today not warranted at this time. Consult Healthcare Provider Management of the patient was discussed with: Vp Cardiovascular Dr. Sharpe, GI Lab Data MDM Lab Attestation statement: I reviewed the patient's lab results. See MDM and course comment 09/05/24 11:40 09/05/24 11:40 Labs: Lab Results 09/05/24 09/05/24 09/05/24 Range/Units 11:40 15:00 17:42 WBC 14.1 H (4.8-10.8) X10*3/uL RBC 6.11 H (4.60-5.80) X10*6/uL Hgb 15.4 (14.0-18.0) g/dl Hct 48.7 (42.0-52.0) % MCV 79.7 L (80.0-98.0) fL MCH 25.2 L (27.0-33.0) pg MCHC 31.6 (31.0-36.0) g/dl RDW 15.0 (11.0-16.0) % Plt Count 276 (160-400) X10*3/uL MPV 10.2 (9.4-12.4) fL Immature Gran % (Auto) 0.4 (0.0-0.4) % Neut % (Auto) 78.3 H (45-73) % Lymph % (Auto) 8.7 L (20-40) % Dickey % (Auto) 10.1 (2-11) % Eos % (Auto) 2.0 (0-4) % Baso % (Auto) 0.5 (0-2) % Lymph # (Auto) 1.2 (1.2-4.9) X10*3/uL Dickey # (Auto) 1.4 H (0.1-1.2) X10*3/uL Eos # (Auto) 0.3 (0.0-0.4) X10*3/uL Baso # (Auto) 0.1 (0.0-0.2) X10*3/uL Abs Immat Gran (auto) 0.06 H (0.00-0.03) X10*3/uL Absolute Neuts (auto) 11.0 H (2.0-8.3) x10*3/uL Absolute Nucleated RBC 0.000 (0.0-0.012) X10*3/uL Nucleated RBC % (auto) 0.0 (0.0-0.2) /100WBC Sodium 140 (135-145) mmol/L Potassium 4.0 (3.3-5.1) mmol/L Chloride 107 (96-108) mmol/L Carbon Dioxide 27 (22-29) mmol/L Anion Gap 10 L (12-20) BUN 11 (9-16) mg/dL Creatinine 0.88 (0.5-1.4) mg/dL Estim Creat Clear Calc 191.8 Estimated GFR > 60 Random Glucose 97 (60-115) mg/dL Lactic Acid 1.3 (0.5-2.0) mmol/L Calcium 8.9 (8.4-10.2) mg/dL Magnesium 2.1 (1.6-2.6) mg/dL Total Bilirubin 0.6 (0.0-1.0) mg/dL AST 36 (5-37) U/L ALT 61 H (0-40) U/L Alkaline Phosphatase 64 (39-117) U/L Troponin I High Sens < 2.7 (<3.5-35.0) ng/L Total Protein 7.6 (6.5-8.0) g/dL Albumin 4.4 (3.5-5.0) g/dL Lipase 38 (8-78) U/L Urine Color Yellow Urine Appearance Clear Urine pH 6.0 (5.0-9.0) Ur Specific Dimock >= 1.030 H (1.005-1.025) Urine Protein Negative (Neg-Trace) mg/dL Urine Glucose (UA) Negative (Negative) mg/dL Urine Ketones Negative (Negative) mg/dL Urine Blood Negative (Negative) Urine Nitrite Negative (Negative) Ur Leukocyte Esterase Negative (Negative) Urine RBC 0-2 (0-2) /HPF Urine WBC 0-5 (0-5) /HPF Ur Squamous Epith Cells 0-2 (0-2) /HPF Urine Bacteria None Seen (None Seen) Hyaline Casts 0-2 (0-2) /LPF Influenza Type A (PCR) NEGATIVE (Negative) Influenza Type B (PCR) NEGATIVE (Negative) RSV RNA Qual (PCR) NEGATIVE (Negative) SARS-CoV-2 RNA (RT-PCR) NEGATIVE (Negative) Independent Interpretation I performed an independent interpretation of an: EKG Interpretation: EKG sinus tachycardia at a ventricular rate of 105 beats per minute, MI interval 142, QRS 102, QT QTC 322/425, no STEMI. Radiology Impression Discussion of test interpretation with radiology: I have reviewed the radiologist's reading. Radiologist Impression: FINDINGS: LUNG BASES: The visualized lung bases are unremarkable. LIVER, GALLBLADDER, AND BILIARY TREE: Liver demonstrates diffuse fatty infiltration with normal contour. No suspicious hepatic lesions seen. No intrahepatic or extrahepatic biliary dilatation. The gallbladder is unremarkable with no evidence of radiopaque gallstones, gallbladder wall thickening, or obvious pericholecystic inflammatory changes. PANCREAS: Unremarkable. SPLEEN: Unremarkable. ADRENAL GLANDS: Unremarkable. KIDNEYS AND URETERS: The kidneys are normal in size, shape, and attenuation. No hydronephrosis, hydroureter, or calculi seen. No perinephric stranding. BLADDER: Unremarkable. GASTROINTESTINAL TRACT: Best appreciated on the coronal reformats is mucosal enhancement and mild fold thickening of the most terminal ileum leading into the ileocecal valve, findings consistent with terminal ileitis. The remainder of the small bowel, stomach, duodenum, colon, and rectum appear normal. A normal appendix is visualized although there is an appendicolith within the proximal aspect. No inflammatory changes to suggest appendicitis. ABDOMINAL WALL: There is a tiny fat-containing right inguinal hernia. There is a tiny fat-containing periumbilical hernia. LYMPH NODES: Normal. VASCULAR: Unremarkable. PELVIC VISCERA: The prostate and seminal vesicles are unremarkable. OSSEOUS STRUCTURES: No suspicious lytic or blastic bone lesion. No acute bony abnormalities. CT/CT abdomen pelvis w IV con IMPRESSION: 1. Mild wall thickening and mucosal enhancement of the most terminal ileum, findings consistent with mild terminal ileitis. Inflammatory bowel disease is a consideration versus infectious etiologies. 2. Diffuse fatty infiltration of the liver. Electronically signed by: Chago Basurto MD 09/05/2024 04:27 PM EDT Dictated By: Chago Basurto MD Critical Care Time Critical Care Time Critical Care Time: Yes Total Critical Care Time: 37 Attestation: I have personally provided critical care time exclusive of time spent on separately billable procedures. Time includes review of lab data, radiology results, discussion with consultants, and monitoring for potential decompensation. Intervention performed as documented. Discharge Plan Discharge Clinical Impression: Ileitis, Abdominal pain, Diarrhea Patient Disposition: Home, Self-Care Instructions: Gastroenteritis (ED), Acute Diarrhea (ED), Abdominal Pain (ED), Enteritis (ED) Additional Instructions: You were seen in the emergency department today. Your CT scan shows some inflammation, this could be due to inflammatory bowel disease or due to an infection. Recommendation from the GI physician suggest sticking to a bland diet, acidic foods, avoiding spicy, dairy, or fried foods. Sticking to the brat diet which is bananas rice, applesauce, and toast will help with diarrhea. Advance your diet as tolerated. It is very important that you stay well hydrated, plenty of water, and electrolytes. Take Tylenol and or ibuprofen as needed for fevers and pain. Continue monitoring fevers at home. If any new or worsening symptoms occur including but not limited to fevers not responding to Tylenol or Motrin, worsening abdominal pain, bloody or black stool, please seek emergent care. Prescriptions: New acetaminophen [Tylenol Extra Strength] 500 mg tablet 1,000 mg PO Q8H PRN (Reason: fever or pain) Qty: 30 0RF No Action ibuprofen 800 mg tablet 800 mg PO Q8H PRN (Reason: pain) Qty: 30 0RF ciprofloxacin HCl 500 mg tablet 500 mg PO BID 7 Days Qty: 14 0RF cephalexin 500 mg capsule 500 mg PO QID 7 Days Qty: 28 0RF ibuprofen 800 mg tablet 800 mg PO Q8H PRN (Reason: pain) Qty: 14 0RF acetaminophen [Tylenol Extra Strength] 500 mg tablet 500 mg PO Q6H PRN (Reason: fever or pain) Qty: 14 0RF amoxicillin-pot clavulanate 875-125 mg tablet 1 tab PO BID Qty: 20 0RF oxycodone 5 mg tablet 5 mg PO Q6H PRN (Reason: pain) Qty: 20 0RF Rx Instructions: Partial Fill upon patient request. ibuprofen 600 mg tablet 600 mg PO Q6H PRN (Reason: fever or pain) Qty: 30 0RF Stand Alone Forms: Work/School Release Print Language: Martiniquais
[2024-09-05 11:46] LABS: MANUAL DIFF FLAG NO
[2024-09-05 11:48] LABS: Basophils Absolute Auto 0.1 X10*3/uL (0.0-0.2); Basophils Percent Auto 0.5 % (0-2); Eosinophils Absolute Auto 0.3 X10*3/uL (0.0-0.4); Hematocrit 48.7 % (42.0-52.0); Hemoglobin 15.4 g/dl (14.0-18.0); Imm Gran Abs Auto 0.06 X10*3/uL (0.00-0.03); Imm Gran Pct Auto 0.4 % (0.0-0.4); Lymphocytes Absolute Auto 1.2 X10*3/uL (1.2-4.9); Lymphocytes Percent Auto 8.7 % (20-40); Mean Corpuscular HGB Conc 31.6 g/dl (31.0-36.0); Mean Corpuscular Hemoglobin 25.2 pg (27.0-33.0); Mean Corpuscular Volume 79.7 fL (80.0-98.0); Mean Platelet Volume 10.2 fL (9.4-12.4); Monocytes Absolute Auto 1.4 X10*3/uL (0.1-1.2); Monocytes Percent Auto 10.1 % (2-11); Neutrophils Percent Auto 78.3 % (45-73); Platelet Count 276 X10*3/uL (160-400); Red Blood Count 6.11 X10*6/uL (4.60-5.80); White Blood Count 14.1 X10*3/uL (4.8-10.8)
[2024-09-05 12:10] LABS: Alanine Aminotransferase 61 U/L (0-40); Albumin Level 4.4 g/dL (3.5-5.0); Alkaline Phosphatase 64 U/L (39-117); Anion Gap 10 (12-20); Aspartate Amino Transferase 36 U/L (5-37); Bilirubin Total 0.6 mg/dL (0.0-1.0); Blood Urea Nitrogen 11 mg/dL (9-16); Calcium 8.9 mg/dL (8.4-10.2); Carbon Dioxide 27 mmol/L (22-29); Chloride 107 mmol/L (96-108); Creatinine Clr Calc Pharmacy 191.8; Estimated Glomerular Filt Rate > 60; Glucose Random 97 mg/dL (60-115); Lipase 38 U/L (8-78); Sodium 140 mmol/L (135-145); Total Protein 7.6 g/dL (6.5-8.0)
[2024-09-05 12:23] LABS: Influenza A PCR NEGATIVE (Negative); Influenza B PCR NEGATIVE (Negative); Resp Syncy Virus RNA Qual PCR NEGATIVE (Negative); SARS COV2 PCR INHOUSE NEGATIVE (Negative)
--- OUTSIDE RECORDS SUMMARY | 2024-09-05 13:44 | XMS_ITS | Encounter Summary ---
Author Organization [facility] [place] Address [address] [place] [address] Care Team Providers Care Botanical Technical Officer Name Role Phone Orquidea Morales MD Primary Care Provider Unavail able Ziyad Grewal Primary Care Provider [phone] Encounter Details Date Type Department Care Team Description 03/03/2021 Pt. Non Urgent Medic al Question Adult Medicine [address] [address] Orquidea Morales MD Social History Tobacco Use Types Packs/Day Years Used Date Smoking Tobacco: Former Cigarettes Q uit: 12/08/2019 Smokeless Tobacco: Never Alcohol Use Standard Drinks/Week Comments Yes 0 (1 standard drink = 0.6 oz pur e alcohol) Social Physical Activity Answer Date Recorded On average, how many days pe r week do you engage in moderate to strenuous exercise (like walking fast, running, jogging, dancing, swimming, biking, or other activities that cause a light or heavy sweat)? 0 days 06/19/2020 On average, how many minutes do you engage in exercise at this level? 0 min 06/19/2020 Sex Assigned at Date Recorded Not on file Job Start Date Occupation Industry Not on file Not on file Not on file COVID-19 Exposure Response Date Recorded In the last month, have you been in contact with someone who was confirmed or suspected to have Coronavirus / COVID-19? Unable to assess 03/04/2021 7:14 AM EDT documented as of this encounter Miscellaneous Notes * Telephone Encounter - Priscilla Rome M.A. - 03/03/2021 4:10 PM EDTFrom: Joao Phillips To: Deborah Morales Sent: 03/03/2021 4:09 PM EDT Subject: Rash Good evening. So I have this rash under my armpit I'm guessing from sweating a lot at work. I was wondering if I can have an appointment to see what cream I can use. Thank you documented in this encounter Plan of Treatment Not on file documented as of this encounter Visit Diagnoses Not on filedocumented in this encounter Care Teams Botanical Technical Officer Relationship Specialty Start Date End Date Orquidea Morales MD PCP - General Internal Medicine 06/07/18 08/25/21 Ziyad Grewal [address] [place] [id number] PCP - General Internal Medicine 08/26/21 documented as of this encounter
--- OUTSIDE RECORDS SUMMARY | 2024-09-05 13:44 | XMS_ITS | Encounter Summary ---
Author Organization [facility] Address [address] [place] [address] Care Team Providers Care Acid Purification Equipment Operator Name Role Phone Orquidea Morales MD Primary Care Provider Unavail able Ziyad Grewal Primary Care Provider [phone] Encounter Details Date Type Department Care Team Description 07/25/2018 Release of Information Medical Records [address] [place] [address] Abstract, Provider Social History Tobacco Use Types Packs/Day Years Used Date Smoking Tobacco: Every Day Cigarettes Smokeless Tobacco: Never Alcohol Use Standard Drinks/Week Comments Yes 0 (1 standard drink = 0.6 oz pur e alcohol) Physical Activity Answer Date Recorded On average, [...] file Not on file Not on file documented as of this encounter Plan of Treatment Not on file documented as of this encounter Visit Diagnoses Not on filedocumented in this encounter Care Teams Acid Purification Equipment Operator Relationship Specialty Start Date End Date Orquidea Morales MD PCP - General Internal Medicine 06/07/18 08/25/21 Ziyad Grewal [address] [place] [address] PCP - General Internal Medicine 08/26/21 documented as of this encounter
--- OUTSIDE RECORDS SUMMARY | 2024-09-05 13:44 | XMS_ITS | Encounter Summary ---
Author Organization [facility] Address [address] [place] [address] Care Team Providers Care Brain Surgeon Name Role Phone Ziyad Grewal Primary Care Provider Encounter Details Date Type Department Care Team Description 11/05/2022 Molded Goods Embossing Press Operator Report Medical Records [address] [place] [address] Social History Tobacco Use Types Packs/Day Years [...] Exposure Response Date Recorded In the last 10 days, have yo u been in contact with someone who was confirmed or suspected to have Coronavirus/COVID-19? No / Unsure 10/20/2022 12:54 PM EDT documented as of this encounter Plan of Treatment Not on file documented as of this encounter Visit Diagnoses Not on filedocumented in this encounter Care Teams Brain Surgeon Relationship Specialty Start Date End Date Ziyad Grewal [address] [place] [id number] PCP - General Internal Medicine 08/26/21 documented as of this encounter
--- OUTSIDE RECORDS SUMMARY | 2024-09-05 13:44 | XMS_ITS | Clinical Summary ---
Author Organization [employer] Address [address] [facility] [address] [place] [address] Care Team Providers Care Agriculturist Name Role Phone Unavailable Primary Care Provider Unavailabl e Allergies No known active allergies Medications No known medications Social History Tobacco Use Types Packs/Day Years Used Date Smoking Tobacco: Never Smokeless Tobacco: Never Tobacco Cessation:Counseling Given: Not Answered Alcohol Use Standard Drinks/Week Comments Yes 1 (1 standard drink = 0.6 oz pur e alcohol) Sex and Gender Information Value Date Recorded Sex Assigned at Male 03/09/2022 10:22 AM EDT Legal Sex Male 10:22 AM EDT Gender Identity Male 10/20/2023 10:14 AM EDT Sexual Orientation Choose not to disclose 2023 10:14 AM EDT Last Filed Vital Signs Vital Sign Reading Time Taken Comments Blood Pressure 128/84 03/08/2024 3:07 PM EDT Pulse - - Temperature - - Respiratory Rate - - Oxygen Saturation - - Inhaled Oxygen Concentration - - Weight - - Height - - Body Mass Index - - Plan of Treatment Health Maintenance Due Date Last Done Comments Depression Screening 1995 HIV Screening 1995 Lipid Panel 1995 SDOH Screening 1995 Alcohol/Substance Use Screening 2007 Family Planning (PISQ) 08/10/2010 Hepatitis C Screening 08/10/2013 Dental Oral Exam 03/01/2014 08/29/2013, 11/17/2012 Dental Prophylaxis 04/07/2014 10/04/2013, 11/17/2012, 12/29/2011 Hepatitis B Vaccines (1 of 3 - 19+ 3-dose series) 08/10/2014 Dental X-Ray: Full Mouth 12/29/2014 12/29/2011 COVID-19 Vaccine (3 - 2023-2 5 season) 2024 01/12/2021, 12/12/2020 Influenza Vaccine (#1) 2024 06/06/2018 Dental X-Ray: Bitewings 10/20/2024 10/20/19 24, 08/29/2013, 11/17/2012 Tobacco Screening 03/08/2025 03/08/2024 DTaP/Tdap/Td Vaccines (2 - T d or Tdap) 06/06/2028 06/06/2018 Zoster Vaccines (1 of 2) 08/10/2045 RSV Patients and Patients Aged 60 years or older (1 - 1-dose 75+ series) 08/10/2070 HIB Vaccines Aged Out No longer eligi ble based on patient's age to complete this topic HPV Vaccines Aged Out No longer eligi ble based on patient's age to complete this topic Hepatitis A Vaccines Aged Out No long er eligible based on patient's age to complete this topic IPV Vaccines Aged Out No longer eligi ble based on patient's age to complete this topic Meningococcal Vaccine Aged Out No liam leighton eligible based on patient's age to complete this topic Pneumococcal Vaccine: Pediatrics (0 to 5 Years) and At-Risk Patients (6 to 49) Years) Aged Out No longer eligible b ased on patient's age to complete this topic RSV under 20 months Aged Out No longe r eligible based on patient's age to complete this topic Rotavirus Vaccines Aged Out No longer eligible based on patient's age to complete this topic Procedures Procedure Name Priority Date/Time Associated Diagnosis Comments BITEWING - SINGLE RADIOGRAPHIC IMAGE Routine 10/20/2023 1:00 PM EDT PROPHYLAXIS - ADULT Routine 10/04/2013 1 2:00 AM EDT PERIODIC ORAL EVALUATION - ESTABLISHED PATIENT Routine 08/29/2013 12:00 AM EDT PANORAMIC RADIOGRAPHIC IMAGE Routine 12/29/2011 12:00 AM EDT from Last 3 Months or Most Recently Relevant to Health Maintenance Insurance [facility] MEDICAID STAND ADULT
--- OUTSIDE RECORDS SUMMARY | 2024-09-05 13:44 | XMS_ITS | Encounter Summary ---
Author Organization [facility] Address [address] [place] [address] Care Team Providers Care Display Carver Name Role Phone Ziyad Grewal Primary Care Provider Reason for Visit * Reason Onset Date Comments Advice 04/07/2023 Encounter Details Date Type Department Care Team Description 04/07/2023 Pt. Non Urgent Medical Question Adult Medicine [address] [address] Ziyad Grewal [address] [place] [id number] Social History Tobacco Use Types Packs/Day Years [...] on file documented as of this encounter Miscellaneous Notes * Telephone Encounter - Monica Alejandranathaly - 04/07/2023 11:22 AM ESTFrom: Joao Phillips To: Nathaly Grewal Sent: 04/07/2023 11:20 AM EST Subject: Question regarding BLOOD TEST PANEL - CMP My sugar was high? Does that mean I have diabetes documented in this encounter Plan of Treatment Not on file documented as of this encounter Visit Diagnoses Not on filedocumented in this encounter Care Teams Display Carver Relationship Specialty Start Date End Date Ziyad Grewal [address] [place] [id number] PCP - General Internal Medicine 08/26/21 documented as of this encounter
--- OUTSIDE RECORDS SUMMARY | 2024-09-05 13:44 | XMS_ITS | Clinical Summary ---
Author Organization [address] Address [address] [place] [id number] Phone Care Team Providers Care Foreman/Pile Driving And Erection Name Role Phone Ziyad Grewal MD Primary Care Provider [phone] Allergies No known active allergies Medications fexofenadine (CHRIS) 180 mg tablet Take 1 Tablet by mouth at bedtime. 2023 Active metFORMIN XR (GLUCOPHAGE-XR) 500 mg 24 hr tablet Take 1 Tablet by mouth daily (with breakfast). 11/10/2023 Active omeprazole (PriLOSEC) [address] capsule Take 1 capsule (20 mg total) by mouth 1 (one) time each day. 11/10/2023 Active predniSONE (DELTASONE) 20 mg tablet Take 3 tabs for 3 days, take 2 tabs for 3 days, take 1 tab for 3 days 11/10/2023 Active triamcinolone (KENALOG) 0.1 % cream Apply thin layer twice daily to affected area for up to 2 weeks. 02/15/2024 Active valACYclovir (VALTREX) 500 mg tablet TAKE 1 TABLET BY MOUTH TWICE A DAY 10 tablet 1 06/30/2024 Active Active Problems Problem Noted Date Diagnosed Date Psoriasis 08/27/2024 Fatty liver 08/27/2024 Anxiety and depression 03/06/2024 Prediabetes 11/10/2023 Gastroesophageal reflux disease without esophagi tis 03/05/2023 Genital herpes simplex 07/21/2018 Immunizations Name Administration Dates Next Due Influenza, Unspecified 06/06/2018 Pfizer SARS-CoV-2 COVID-19, mRNA, LNP-S, preservative free 01/12/2021,12/12/2020 Tdap Tetanus diptheria acell ular pertussis (Boostrix; Adacel) 7yo and older 06/06/2018 Surgical History Surgery Date Site/Laterality Comments OTHER SURGICAL HISTORY 2011 PROCEDURE: NM ARTHROSCOPY TEMPOROMANDIBULAR JOINT SURGICAL WISDOM TOOTH EXTRACTION PROCEDURE: HISTORICAL WISDOM TEETH EXTRACTION Medical History Medical History Date Comments Anxiety and depression DX:Anxiet y and depression GERD (gastroesophageal reflux disease) DX:GERD (gastroesophageal reflux disease) Genital herpes DX:Genital herpe s Family History Medical History Relation Name Comments No Known Problems Father Coronary artery disease Maternal Grandfather Diabetes Maternal Grandfather Breast cancer Maternal Grandmother Diabetes Maternal Grandmother Depression Mother Other: Fibromyalgia Mother Relation Name Status Comments Father Alive Maternal Grandfather Maternal Grandmother Mother Alive Sister 1 Alive Sister 2 Alive Sister 3 Alive Social History Tobacco Use Types Packs/Day Years Used Date Smoking Tobacco: Former Cigarettes Q uit: 12/08/2019 Smokeless Tobacco: Never Alcohol Use Standard Drinks/Week Comments Yes 0 (1 standard drink = 0.6 oz pur e alcohol) Sex and Gender Information Value Date Recorded Sex Assigned at Not on file Legal Sex Male 2:14 PM EST Gender Identity Not on file Sexual Orientation Not on file Obstetrics History Last Filed Vital Signs Vital Sign Reading Time Taken Comments Blood Pressure 104/78 11/10/2023 8:33 AM EDT Pulse 78 11/10/2023 8:33 AM EDT Temperature - - Respiratory Rate - - Oxygen Saturation - - Inhaled Oxygen Concentration - - Weight 149 kg (329 lb) 11/10/2023 8:33 AM EDT Height 188 cm (6' 2 ) 11/10/2023 8:33 AM EDT Body Mass Index 42.24 11/10/2023 8:33 AM EDT Plan of Treatment Health Maintenance Due Date Last Done Comments Hepatitis B Vaccines (1 of 3 - 19+ 3-dose series) 08/10/2014 Pneumococcal Vaccine: Pediatrics (0 to 5 Years) and At-Risk Patients (6 to 64 Years) (1 of 2 - PCV) 08/10/2014 Depression Screening 04/18/2022 Social Influencers of Health Screening 04/18/2022 COVID-19 Vaccine (3 - 2023-2 5 season) 2024 01/12/2021, 12/12/2020 Influenza Vaccine (Season Ended) 2025 06/06/2018 Cholesterol Screening (Lipid Panel) 04/07/2028 04/07/2023 DTaP,Tdap,and Td Vaccines (2 - Td or Tdap) 06/06/2028 06/06/2018 Hepatitis C Screening Completed 04/07/2023 HIV Screening Completed 03/21/2024, 04/07/2023 HIB Vaccines Aged Out No longer eligi [...] on patient's age to complete this topic MMR Vaccines Aged Out No longer eligi ble based on patient's age to complete this topic Meningococcal ACWY Vaccine Aged Out N o longer eligible based on patient's age to complete this topic Meningococcal B Vaccine Aged Out No l onger eligible based on patient's age to complete this topic RSV Immunization Patients Under 20 months Aged Out No longer eligible b ased on patient's age to complete this topic Varicella Vaccines Aged Out No longer eligible based on patient's age to complete this topic Procedures Procedure Name Priority Date/Time Associated Diagnosis Comments HIV 1, 2 ANTIBODY, P24 ANTIGEN WITH REFLEX TO DIFFERENTIATION Routine 03/21/2024 8:08 AM EST Screening examination for venereal disease HEPATITIS C SCREENING Routine 04/07/2023 LIPID PANEL Routine 04/07/2023 from Last 3 Months or Most Recently Relevant to Health Maintenance Results * HIV 1,2 antibody, p24 antigen with reflex to differentiation (03/21/2024 8:08 AM EST) HIV Combo AB/AG Negative Negative LAB CHEMISTRY METHOD 03/21/2024 11:35 AM EST [facility] Blood Venous blood specimen / Unknown Venipuncture / Unknown 03/21/2024 8:08 AM EST 03/21/2024 8:08 AM EST Narrative [facility]) [facility] - 03/21/2024 11:35 AM EST This assay is a 4th generation assay allowing for earlier detection of HIV infection by detecting the presence of the HIV-1 p24 antigen as well as the traditional antibodies to HIV type 1 (including group O) and type 2. ??Use of a 4th generation assay is the current CDC recommendation for HIV screening. Ziyad Grewal MD LAB BLOOD ORDERABLES Final Result [facility] [address] [place] [address], [place] [phone] * Hepatitis C Screening (04/07/2023) Pathologist [facility] Hepatitis C Screening abstracted Historical Provider HEALTH MAINTENANCE Final Result * (ABNORMAL) Lipid panel (04/07/2023) LDL/HDL Ratio 4 0 - 4 Triglycerides 125 0 - 150 mg/dL Cholesterol 143 0 - 200 mg/dL HDL 35(A) >=40 mg/dL LDL Cholesterol 83 0 - 100 mg/dL Blood Venous blood specimen / Unknown Historical Provider LAB BLOOD ORDERABLES Katie l Result from Last 3 Months or Most Recently Relevant to Health Maintenance Insurance [facility] [employer] [facility] Care Teams Foreman/Pile Driving And Erection Relationship Specialty Start Date End Date Ziyad Grewal MD [address] [place] [address] PCP - General Internal Medicine 08/26/21
--- NOTE | 2024-09-05 14:47 | ECG_ITS ---
Test Reason : TACHYCARDIA Blood Pressure : */* mmHG Vent. Rate : 105 BPM Atrial Rate : 105 BPM P-R Int : 142 ms QRS Dur : 102 ms QT Int : 322 ms P-R-T Axes : 20 1 19 degrees QTcB Int : 425 ms Sinus tachycardia Minimal voltage criteria for LVH, may be normal variant ( R in aVL ) Possible Inferior infarct , age undetermined Cannot rule out Anterior infarct , age undetermined Abnormal ECG No previous ECGs available Referred By: Anita Chase Electronically Signed By: Frederick Hopper
[2024-09-05] MEDS: cefTRIAXone sodium 1 GM VIAL IVPUSH (15:05)
[2024-09-05] MEDS: 0.9 % Sodium Chloride 2,466 ML 2466 ML IV (15:09)
[2024-09-05] MEDS: Acetaminophen 1,000 MG/100 ML PIGGYBACK 400 MG IV (15:11)
[2024-09-05] MEDS: metroNIDAZOLE/NS 500 MG/100 ML PIGGYBACK 100 MG IV (15:17)
[2024-09-05 15:20] LABS: Magnesium 2.1 mg/dL (1.6-2.6)
[2024-09-05 15:29] LABS: Lactic Acid 1.3 mmol/L (0.5-2.0)
[2024-09-05] MEDS: iohexoL 350 MG/ML 100 ML INFUS..BTL IV (15:47)
[2024-09-05 16:08] LABS: Troponin-I High Sensitivity < 2.7 ng/L (<3.5-35.0)
[2024-09-05 17:52] LABS: Appearance Urine Clear; Color Urine Yellow; Glucose Urine UA Negative (Negative); Leukocyte Esterase Urine Negative (Negative); Nitrite Urine Negative (Negative); Specific Gravity - Urine >= 1.030 (1.005-1.025); Urine Blood Negative (Negative); Urine Ketones Negative (Negative); Urine Protein Negative (Neg-Trace)
[2024-09-05 17:54] LABS: Bacteria Urine None Seen (None Seen); Hyaline Casts Urine 0-2 /LPF (0-2); RBC Urine 0-2 /HPF (0-2); Squamous Epithelial Cell Urine 0-2 /HPF (0-2); WBC Urine 0-5 /HPF (0-5)
[2024-09-05] MEDS: Lactated Ringers 1,000 ML 999 ML IV (18:12)
== END 2024-09-05 19:07 | disposition home or self-care (01) ==
PROVIDERS: Physician Assistant; Physician Assistant Medical; Emergency Provider Emergency Medicine; PCP Internal Medicine
DX: K52.9 Noninfective gastroenteritis and colitis, unspecified (principal); R10.9 Unspecified abdominal pain; Z03.818 Encounter for observation for suspected exposure to other biological agents ruled out
CPT/HCPCS: 0241U; 36415; 74177; 80053; 81001; 83605; 83690; 83735; 84484; 85025; 87040; 93005; 96361; 96365; 96375; 99285; J0131; J0696; J1836; J7120; Q9967

== ENCOUNTER → 2024-09-05 14:47 | Outpatient (BNV) | payer OTHER, SELFPAY | PROVIDERS: Emergency Provider Emergency Medicine; PCP Internal Medicine; Visit Provider Internal Medicine Cardiovascular Disease | DX: R00.0 Tachycardia, unspecified (principal) | CPT/HCPCS: 93010 ==

== ENCOUNTER → 2024-09-05 15:15 | Outpatient (BNV) | payer OTHER, SELFPAY | PROVIDERS: Emergency Provider Emergency Medicine; PCP Internal Medicine; Visit Provider Radiology Diagnostic Radiology | DX: R10.9 Unspecified abdominal pain (principal); R19.7 Diarrhea, unspecified; R11.10 Vomiting, unspecified; K76.0 Fatty (change of) liver, not elsewhere classified | CPT/HCPCS: 74177 ==